=== PATIENT | female | born 1985 | race Caucasian/White ===

== ENCOUNTER 2022-08-11 12:50 | Emergency (ER) | payer MEDICAID ==
[~2022-08-11] VITALS: Ht 167.6 cm; Wt 74.8 kg
[2022-08-11 13:01] VITALS: BP 150/87
--- NOTE | 2022-08-11 14:12 | NUR ---
COVID SWAB AND FLU SWAB COLLECTED AND SENT TO LAB
[2022-08-11] MEDS ORDERED: AMOX-430 PO (15:13)
[2022-08-11] MEDS ORDERED: BENZ-13 PO (15:13)
[2022-08-11] MEDS ORDERED: IBUP-1955 PO (15:13)
--- NOTE | 2022-08-11 15:18 | NUR ---
Patient discharged to home in stable condition. Written and verbal after care instructions given. Patient verbalizes understanding of instruction.
[2022-08-11] MEDS ORDERED: PRED20TA PO (17:07)
[2022-08-11] MEDS ORDERED: ALBU18HF2 INH (17:07)
== END 2022-08-11 15:19 | disposition home or self-care (01) ==
LOC: ER 13:00
DX: J20.9 Acute bronchitis, unspecified (principal); J06.9 Acute upper respiratory infection, unspecified; R05.9 Cough, unspecified; R09.81 Nasal congestion; J45.909 Unspecified asthma, uncomplicated; Z20.822 Contact with and (suspected) exposure to COVID-19; Z79.899 Other long term (current) drug therapy
CPT/HCPCS: 99283; U0003; C9803

== ENCOUNTER 2022-09-06 13:25 | Emergency (ER) | payer MEDICAID ==
[~2022-09-06] VITALS: Ht 167.6 cm; Wt 72.6 kg
[2022-09-06 13:25] VITALS: BP 127/86
[~2022-09-06 13:25] MED LIST: ALBU18HF2 INH; AMOX-430 PO; BENZ-13 PO; IBUP-1955 PO; PRED20TA PO
--- NOTE | 2022-09-06 13:25 | NUR ---
BIBS C/O SORE THROAT AND EAR PAIN SINCE THIS MONDAY, WOKE UP THIS MORNING AND IS HAVING TROUBLE TALKING
[2022-09-06] MEDS ORDERED: CARB15DR12 RIGHT EAR (15:10)
[2022-09-06] MEDS ORDERED: LORA10TA68 PO (15:10)
--- NOTE | 2022-09-06 15:15 | NUR ---
RAPID STREP COLLECTED AND SENT
--- NOTE | 2022-09-06 15:16 | NUR ---
Patient discharged to home in stable condition. Written and verbal after care instructions given. Patient verbalizes understanding of instruction.
== END 2022-09-06 15:17 | disposition home or self-care (01) ==
LOC: ER 13:26
DX: J06.9 Acute upper respiratory infection, unspecified (principal); H61.21 Impacted cerumen, right ear; J45.909 Unspecified asthma, uncomplicated; Z79.899 Other long term (current) drug therapy
CPT/HCPCS: 86403-TC